=== PATIENT | female | born 1945 | race Caucasian/White ===

== ENCOUNTER → 2017-09-09 | Outpatient (CLI) | payer OTHER | LOC: FIMAGING 12:33 | PROVIDERS: ATTEND Orthopaedic Surgery | DX: M17.12 Unilateral primary osteoarthritis, left knee (principal) ==

== ENCOUNTER 2017-09-16 06:05 | Observation (INO) | payer OTHER ==
[~2017-09-16 06:05] MED LIST: *IRR*TRANEXAMIC ACID 3,000 MG/NS 50 ML IRR ONE; ROPIVACAINE 0.2% 80 MG, EPINEPHrine 0.2 MG, KETOROLAC TROMETHAMINE 30 MG in SYRINGE 0 ML IU ONE; TRANEXAMIC ACID 3,000 MG in NS 50 ML IRR ONE
[2017-09-16] MEDS ORDERED: FAMOTIDINE 20 MG TAB PO ONE (07:00)
[2017-09-16] MEDS ORDERED: ceFAZolin 2 GM/SWFI 2 GM/20 ML SYR IVP ONE (07:00)
[2017-09-16] MEDS ORDERED: DEXAMETHASONE 4 MG/ML VIAL IVP ONE (07:00)
[2017-09-16] MEDS ORDERED: ACETAMINOPHEN 325 MG TAB PO ONE (07:00)
--- NOTE | 2017-09-16 07:05 | PDHPUP ---
History & Physical Update H&P update statement: This history and physical update is based on an assessment of the patient which was completed after admission or registration (within 24 hours), but prior to the surgery/procedure. H&P update: H&P reviewed & patient examined, no change in patient's condition since H&P completed
[2017-09-16] MEDS ORDERED: TRANEXAMIC ACID 3,000 MG/50 ML BAG IRR ONE (07:37)
[2017-09-16] MEDS ORDERED: MIDAZOLAM 2 MG/2 ML VIAL IVP ONE (07:50)
--- NOTE | 2017-09-16 07:52 | PDANEPAE ---
ANE Past Medical History - Cardiovascular History Hx Hypertension: Yes Hx Arrhythmias: No Hx Chest Pain: No Hx Coronary Artery / Peripheral Vascular Disease: No Hx CHF / Valvular Disease: No Hx Palpitations: No - Pulmonary History Hx COPD: No Hx Asthma/Reactive Airway Disease: No Hx Recent Upper Respiratory Infection: No Hx Oxygen in Use at Home: No Hx Sleep Apnea: Yes Sleep Apnea Screening Result - Last Documented: Positive - Neurologic History Hx Cerebrovascular Accident: No Hx Seizures: No Hx Dementia: No - Endocrine History Hx Diabetes: No - Renal History Hx Renal Disorders: No - Liver History Hx Hepatic Disorders: No - Neurological & Psychiatric Hx Hx Neurological and Psychiatric Disorders: No - Cancer History Hx Cancer: No - Congenital Disorder History Hx Congenital Disorders: No - GI History Hx Gastrointestinal Disorders: No - Other Health History Other Health History: NEG - Chronic Pain History Chronic Pain: Yes (L KNEE, NECK PAIN) - Surgical History Prior Surgeries: CATARACT. DEVIATED SEPTUM REPAIR. APPENDECTOMY ANE Review of Systems Review of Systems: - Exercise capacity METS (RN): 4 METS ANE Patient History - Allergies Allergies/Adverse Reactions: albuterol Allergy (Verified 09/04/17 14:15) Other-Enter Comments - Home Medications Home Medications: Acetaminophen [Tylenol ES 500 mg (*)] 1,000 mg PO BID 09/04/17 [Last Taken Unknown] Ergocalciferol [Vitamin D2 (*)] 50,000 unit PO Q14D 09/04/17 [Last Taken Unknown ] Fluticasone Nasal [Flonase Nasal [place] (RX)] 1 sprays NASAL DAILY PRN 09/04/17 [ Last Taken Unknown] Herbals/Supplements -Info Only 1 ea PO DAILY 09/04/17 [Last Taken Unknown] Lisinopril [Zestril 40 mg (*)] 40 mg PO DAILY 09/04/17 [Last Taken Unknown] Simvastatin 10 mg PO HS 09/04/17 [Last Taken Unknown] amLODIPine BESYLATE [Norvasc 5 mg (*)] 5 mg PO DAILY 09/04/17 [Last Taken Unknown] - NPO status NPO Since - Liquids (Date): 09/15/17 NPO Since - Solids (Date): 09/15/17 - Anes Hx Anes Hx: no prior problems - Smoking Hx Smoking Status: Former smoker - Family Anes Hx Family Hx Anesthesia Complications: NONE ANE Labs/Vital Signs - Vital Signs Blood Pressure: 151/87 Heart Rate: 76 Respiratory Rate: 16 O2 Sat (%): 92 Height: 156.21 cm Weight: 70.76 kg ANE Physical Exam - Airway Neck exam: FROM Mallampati Score: Class 2 Mouth exam: normal dental/mouth exam - Pulmonary Pulmonary: no respiratory distress, no rales or rhonchi, clear to auscultation - Cardiovascular Cardiovascular: regular rate and rhythym, no murmur, rub, or gallop - ASA Status ASA Status: II ANE Anesthesia Plan Anesthesia Plan: spinal Regional Anesthesia: adductor canal FNB
[2017-09-16] MEDS ORDERED: MIDAZOLAM 2 MG/2 ML VIAL ONE (07:58)
[2017-09-16] MEDS ORDERED: PROPOFOL/EMULSION 500 MG/50 ML BOTTLE IV ONE (08:00)
[2017-09-16] MEDS ORDERED: fentaNYL 100 MCG/2 ML INJ ONE (08:03)
[2017-09-16] MEDS ORDERED: BUPIVACAINE/EPI 0.5% 30 ML SDV ONE (08:28)
[2017-09-16] MEDS ORDERED: DEXAMETHASONE 4 MG/ML VIAL ONE ×2 (08:31)
[2017-09-16] MEDS ORDERED: ONDANSETRON 4 MG/2 ML VIAL IVP PRN ×2 (08:52→09:38)
[2017-09-16] MEDS ORDERED: NALOXONE HCL 0.4 MG/ML INJ IVP PRN (08:52)
[2017-09-16] MEDS ORDERED: LABETALOL HCL 5 MG/ML 20 ML MDV IVP PRN (08:52)
[2017-09-16] MEDS ORDERED: fentaNYL 100 MCG/2 ML INJ IVP PRN (08:52)
[2017-09-16] MEDS ORDERED: PROMETHAZINE HCL 25 MG/ML INJ IVP PRN ×2 (08:52→09:38)
[2017-09-16] MEDS ORDERED: OXYCODONE/APAP 5/325 TAB PO PRN (08:52)
[2017-09-16] MEDS ORDERED: LR 500 ML IV PRN (08:52)
[2017-09-16] MEDS ORDERED: POLYETHYLENE GLYCOL 3350 17 GM PKT PO PRN (09:38)
[2017-09-16] MEDS ORDERED: DIPHENOXYLATE/ATROPINE LOMOTIL 1 TAB PO PRN (09:38)
[2017-09-16] MEDS ORDERED: diphenhydrAMINE 25 MG CAP PO PRN (09:38)
[2017-09-16] MEDS ORDERED: METOCLOPRAMIDE 10 MG/2 ML VIAL IVP PRN (09:38)
[2017-09-16] MEDS ORDERED: BISACODYL 10 MG SUPP PR PRN (09:38)
[2017-09-16] MEDS ORDERED: ONDANSETRON DISINTEGRATING 4 MG TAB PO PRN (09:38)
[2017-09-16] MEDS ORDERED: MAGNESIUM HYDROXIDE 30 ML UDCUP PO PRN (09:38)
[2017-09-16] MEDS ORDERED: LACTULOSE 20 GM/30 ML UDCUP PO PRN (09:38)
[2017-09-16] MEDS ORDERED: TEMAZEPAM 15 MG CAP PO PRN (09:38)
[2017-09-16] MEDS ORDERED: PROMETHAZINE HCL 25 MG SUPPR PR PRN (09:38)
--- NOTE | 2017-09-16 09:38 | POSTOPPROG ---
Post Op Note Date of Operation: 09/16/17 Surgeon: Jordon Gonzales News Analyst: tevin gonzales Anesthesiologist: dr. cote Anesthesia: Spinal, Other (Specify) (adductor canal block) Pre-op Diagnosis: left knee OA Post-op Diagnosis: same Indication: left knee pain due to OA that failed conservative measures Procedure: L TKA robot assisted Findings: severe knee OA Inf/Abcess present in the surg proc area at time of surgery?: No EBL: 50-100
--- NOTE | 2017-09-16 10:02 | POSTANESTH ---
Post Anesthetic Evaluation Cardiovascular Status: Normal, Stable, Similar to Pre-Op Cond Respiratory Status: Normal, Stable, Similar to Pre-op Cond. Level of Consciousness/Mental Status: Can Participate in Eval, Alert and Oriented Pain Control: Adequate, Prn Tx Ordered Nausea/Vomiting Control: Adequate, Prn Tx Ordered Complications Possibly Related to Anesthesia: None Noted (Adductor canal nerve block performed in PACU.)
[2017-09-16 10:58] VITALS: RESP 16
[2017-09-16] MEDS: LR 1,000 ML IV SCH ×2 (11:14→21:40)
[2017-09-16] MEDS: ACETAMINOPHEN 325 MG TAB PO SCH ×2 (13:00→17:12)
[2017-09-16] MEDS: oxyCODONE IR 5 MG TAB PO PRN ×3 (14:00→21:26)
[2017-09-16] MEDS: CYCLOBENZAPRINE 10 MG TAB PO PRN (14:00)
[2017-09-16] MEDS: ceFAZolin 2 GM/DEXTROSE 100 ML IV SCH (15:59)
[2017-09-16] MEDS ORDERED: PRAVASTATIN SODIUM 20 MG TAB PO SCH (21:00)
[2017-09-16] MEDS: SENNOSIDES/DOCUSATE SODIUM TAB PO SCH (21:25)
[2017-09-16] MEDS: ASPIRIN 81 MG CHEWABLE TAB PO SCH (21:26)
[2017-09-16] MEDS: FAMOTIDINE 20 MG TAB PO SCH (21:26)
[2017-09-16 23:22] VITALS: BP 104/69; TEMP 97.8
[2017-09-17] MEDS: ceFAZolin 2 GM/DEXTROSE 100 ML IV SCH (00:42)
[2017-09-17] MEDS: ACETAMINOPHEN 325 MG TAB PO SCH ×3 (00:42→11:08)
[2017-09-17 04:54] VITALS: PULSE 65; O2SAT 97
[2017-09-17] MEDS: oxyCODONE IR 5 MG TAB PO PRN ×2 (05:29→10:50)
[2017-09-17] MEDS: ASPIRIN 81 MG CHEWABLE TAB PO SCH (08:09)
[2017-09-17] MEDS: FAMOTIDINE 20 MG TAB PO SCH (08:10)
[2017-09-17] MEDS: SENNOSIDES/DOCUSATE SODIUM TAB PO SCH (08:10)
[2017-09-17] MEDS: CYCLOBENZAPRINE 10 MG TAB PO PRN (08:10)
[2017-09-17] MEDS ORDERED: LISINOPRIL 40 MG TAB PO SCH (09:00)
[2017-09-17] MEDS ORDERED: amLODIPine BESYLATE 5 MG TAB PO SCH (09:00)
[2017-09-17] MEDS ORDERED: FLUTICASONE NASAL 120 SPRAYS/16 GM MDI EACHNARE PRN (09:00)
--- NOTE | 2017-09-17 12:09 | ASDISCHSUM ---
Discharge Information Plan Status:Home with No Needs Medically Cleared to Leave: Discharge Date:09/17/2017 11:17 AM CM D/C Disposition:Home, Routine, Self-Care ADT D/C Disposition:Home, Routine, Self-Care Projected Discharge Date:09/17/2017 11:17 AM Transportation at D/C: Discharge Delay Reason: Follow-Up Date:09/17/2017 11:17 AM Discharge Slot: Final Diagnosis: Placement Information Patient Contact Information Contact Name:SHAUNA Relationship:Brian Address: Home Phone: City: [facility] Phone: [facility] Code: Email: Financial Information Financial Class:Medicare Advantage Plans Primary Plan Desc:[employer] MEDICARE ADV Primary Plan Number:[id number] Secondary Plan Desc: Secondary Plan Number: Assessment Information Intervention Information
--- NOTE | 2017-09-17 13:07 | SOAPPROG ---
BRADLEY Progress Note Assessment/Plan: Assessment: Lindsay is doing POD 1 s/p L TKA pain is well controlled on oral medications DVT ppx: recommend aspirin BID anemia: level is expected initially postop d/c planning: d/c to home pending release from PT Plan: 09/17/17 13:06 Subjective: Lindsay is doing well today, denies SOB, chest pain and N/V. Objective: Vital Signs Temp Pulse Resp BP Pulse Ox 36.6 C 65 16 104/69 97 09/17/17 04:00 09/17/17 04:00 09/17/17 04:00 09/16/17 23:22 09/17/17 04:00 Laboratory Results 09/17/17 04:27 09/16/17 09/17/17 09/18/17 05:59 05:59 05:59 Intake Total 4384 Output Total 2450 Balance 1934 LLE: incision dressing is clean and dry, NVI, +pf/df ICD10 Worksheet Patient Problems: Problems Problem Status Onset Primary localized osteoarthritis of left knee Acute
--- NOTE | 2017-09-17 14:32 | GOP ---
[f rep st] OPERATIVE REPORT DATE OF OPERATION: 09/16/2017 SURGEON: Ari Cuevas MD RIBBON WEAVER: Cesilia Cuevas PA-C ANESTHESIA: Spinal. PREOPERATIVE DIAGNOSIS: Left knee osteoarthritis. POSTOPERATIVE DIAGNOSIS: Left knee osteoarthritis. PROCEDURE PERFORMED: Left total knee arthroplasty with computer navigation, robotic assist. FINDINGS: ESTIMATED BLOOD LOSS: 30 cc. INDICATIONS: The patient is a 72-year-old female with severe and progressive pain and deformity of the left knee unresponsive to conservative care. The risks and benefits of surgical intervention were explained in detail. DESCRIPTION OF PROCEDURE: The patient was brought to the operative room and placed on the table in the supine position. Spinal anesthesia was induced without difficulty. A pneumatic tourniquet was applied about the left proximal thigh, and the leg was prepped and draped in a sterile fashion. The leg valdivia was applied. After exsanguination by elevation the tourniquet was inflated to 250 mmHg. Incision was made anterior medial from the tibial tuberosity to a point 2 cm proximal to the superior pole of the patella. Medial parapatellar arthrotomy was carried out from the superior pole of the patella and posteriorly in line with the fibers of the Type II VMO. The medial collateral ligament was elevated and the infrapatellar fat pad was resected. The patella was everted and the articular surface was excised. A 29 mm patellar button was placed. Attention was turned first to the distal aspect of the femur. After exposure of the femur, 2 half pins were placed for fixation of the femoral array. In a similar fashion, 2 pins were placed anteromedial on the tibia for fixation of the tibial array. External land marking and registration of the hip center were performed without difficulty. Internal femoral and tibial registration were carried out without difficulty and the femoral and tibial checkpoints were placed and verified for accuracy. Attention was turned to the femur. The foot print for the size 2 femoral component was cut with the saw using the [employer] robotic system and verified for accuracy against the CT based plan. In a similar fashion, the saw was used to cut the footprint for the size 3 tibial component using the MIKI system and verified for accuracy against the CT based plan. The tibial articular surface was excised without difficulty. The knee was extended and the remnants of the medial and lateral meniscus were excised. The posterior capsule was injected with ropivacaine, epinephrine and Toradol. A size 3 tibial tray was positioned. Trial reduction was then carried out. There was excellent range of motion, alignment, and stability using the 3 x 9 mm CS polyethylene. All trials were then removed. The joint was thoroughly irrigated and carefully dried. The press-fit components were implanted. The permanent 3 x 9 mm CS polyethylene was placed without difficulty. The tourniquet was deflated and all bleeders were coagulated. The wound was thoroughly irrigated and closed using interrupted sutures of 2-0 Vicryl for the joint capsule. The subcu was closed with 3-0 Vicryl and the skin with 4-0 Monocryl. Dermabond and Steri-Strips were applied followed by a compressive dressing. The patient was then moved from the operating room to the recovery room in good condition, having tolerated the procedure well. /[id number]/MODL MTDD
--- NOTE | 2017-09-17 22:54 | GDS ---
[f rep st] DISCHARGE SUMMARY ADMISSION DIAGNOSIS: Left knee osteoarthritis. DISCHARGE DIAGNOSIS: Left knee osteoarthritis. PROCEDURE: Left total knee arthroplasty, robot assisted. VTE PROPHYLAXIS: Recommend aspirin 81 mg twice daily for 4 weeks. BRIEF DESCRIPTION OF HOSPITAL STAY: Patient was admitted for an elective joint arthroplasty. The pa dulce tolerated the procedure well and has passed physical therapy. The patient was given appropriat e antibiotic prophylaxis and venous thromboembolism prophylaxis. The patient's pain was well control led on oral pain medication, patient was holding down food, and had urinated. Decision was made to d ischarge the patient. The patient was given post-operative prescriptions pre-operatively. PLAN: To follow up as scheduled in Dr. Cuevas's office October 01 at 10:30 a.m. /[id number]/MODL
== END 2017-09-17 11:17 | disposition home or self-care (01) ==
LOC: INTOOBSV 06:05 → F3N 06:05
PROVIDERS: ADMIT Orthopaedic Surgery; ATTEND Orthopaedic Surgery
PROC: 8E0YXBZ Computer Assisted Procedure of Lower Extremity (ICD-10-PCS; principal; 2017-09-16 08:15)
PROC: 0SRD0JA Replacement of Left Knee Joint with Synthetic Substitute, Uncemented, Open Approach (ICD-10-PCS; principal; 2017-09-16 08:15)
DX: M17.12 Unilateral primary osteoarthritis, left knee (principal); M25.562 Pain in left knee; E78.5 Hyperlipidemia, unspecified; I10 Essential (primary) hypertension; M81.0 Age-related osteoporosis without current pathological fracture; G47.33 Obstructive sleep apnea (adult) (pediatric); Z87.891 Personal history of nicotine dependence
CPT/HCPCS: 20985; 27447; 73560; 88311; 97110; 97116; 97161; 97165; 97535; C1776; G0378; G8987; G8988; G8989; J0171; J0690; J1100; J1885; J2250; J2704; J2795; J3010